=== PATIENT | female | born 1955 | race Caucasian/White ===

== ENCOUNTER 2017-03-30 17:02 | Emergency (ER) | payer MEDICARE, OTHER ==
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
[2017-03-30 18:05] VITALS: BP 131/79
== END 2017-03-30 18:03 | disposition home or self-care (01) ==
LOC: ER 17:02
DX: S93.401A Sprain of unspecified ligament of right ankle, initial encounter (principal); X58.XXXA Exposure to other specified factors, initial encounter; Y93.9 Activity, unspecified; Y92.9 Unspecified place or not applicable

== ENCOUNTER 2017-03-31 17:35 | Emergency (ER) | payer MEDICARE, OTHER ==
--- NOTE | 2017-03-31 20:26 | ERNOTE ---
Lower Extremity HPI - Narrative Date of Service: 03/31/17 - General Lower Extremities Pain: foot: right, ankle: right Time Seen by Provider: 03/31/17 19:55 Source: patient Exam Limitations: no limitations - Immun/Allergies/Home Medications Immunizations: IMMUNIZATION HX Immunizations Up to Date Yes History of Influenza Vaccine No Hx Pneumococcal Vaccination No Allergies/Adverse Reactions: Allergies Allergy/AdvReac Type Severity Reaction Status Date / Time penicillin G Allergy Mild HIVES, RASH Verified 03/31/17 17:50 metronidazole [From Flagyl] AdvReac Mild N/V Verified 03/31/17 17:50 Metronidazole HCl AdvReac Mild N/V Verified 03/31/17 17:50 [From Flagyl] Home Medications: HOME MEDICATIONS Cetirizine HCl [Zyrtec] 10 mg PO DAILY 04/22/13 [Last Taken Unknown] EPINEPHrine [Epipen] 0.3 mg IM PRN PRN 04/22/13 [Last Taken Unknown] Lysine [l-Lysine] 500 mg PO DAILY PRN 04/22/13 [Last Taken Unknown] Acetaminophen [Tylenol] 325 - 650 mg PO Q4H PRN 05/04/15 [Last Taken Unknown] Multivitamins [Multivitamin Fazal] 1 cap PO DAILY 05/04/15 [Last Taken Unknown] Albuterol Sulfate [Proair Hfa] 1 - 2 puff IH Q4H PRN 09/04/15 [Last Taken Unknown] Estrogens, Conjugated [Premarin] 0.625 mg PO DAILY 05/27/16 [Last Taken Unknown] Fluticasone Propionate [Flonase] 1 spray NS DAILY 05/27/16 [Last Taken Unknown] traMADol HCL [Ultram] 50 mg PO DAILY PRN #10 tablet 03/30/17 [Last Taken Unknown ] - History of Present Illness Narrative: patient states that she injured her right ankle and foot on Friday. Patient states that she only had an ankle x-ray when she was here and now her foot hurts along with her right wrist. Patient requesting x-rays of foot and right wrist related to pain. Patient states she did not take her anti- inflammatory Aleve today. Occurred: last week Location of Incident: home Method of Injury: Reports: twisted Reason for Fall: Reports: tripped Loss of Consciousness: Reports: no loss of consciousness Modifying Factors - (Improves): Reports: immobilization Modifying Factors - (Worsens): Reports: movement Subsequent Symptoms: Denies: sensory loss, numbness, motor loss, bowel/bladder problem Prior Treament: Reports: recently seen Review of Systems - Review of Systems Constitutional: Present: no symptoms reported EYE: Present: no symptoms reported ENT: Present: no symptoms reported Respiratory: Present: no symptoms reported Cardiology: Present: no symptoms reported Gastrointestinal/Abdominal: Present: no symptoms reported Genitourinary: Present: no symptoms reported Musculoskeletal: Present: See HPI, joint pain Skin: Present: no symptoms reported Neurological: Present: no symptoms reported Endocrine: Present: no symptoms reported Hematologic/Lymphatic: Present: no symptoms reported Psych: Present: no symptoms reported All Other Systems: All systems neg except as marked - Patient's Past Medical History Patient History - Medical: No pertinent hx Patient History - Cardiac/Respiratory: Other Patient History - Cancer: No Hx of Cancer Patient History - Surgical Procedures: Cataracts, Colonoscopy, Total Hip Replacement, Other Patient History - Other: None LMP (females 10-50): Menopausal - Family History Father Family History - Medical: Mother Family History - Medical: Family History - Cardiac/Respiratory: Other - Social History Living Situations: home Abuse History: No History of abuse Psych History: No pertinent hx Smoking Status: Never smoker Alcohol Use: rarely Drug Use: none - Immunizations Immunizations Up to Date: Yes Hx Pneumococcal Vaccination: No History of Influenza Vaccine: No Physical Exam - Physical Exam General Appearance: Present: wd/wn, alert, no apparent distress Head Exam: Present: normal inspection, no evidence of injury Eye Exam: Normal inspection: bilateral, PERRL: bilateral, EOMI: bilateral Ears, Nose, Throat: Present: normal ENT inspection, normal pharynx Neck: Present: normal inspection, nontender Respiratory: Present: no respiratory distress, normal breath sounds, no accessory muscle use, chest nontender, lungs clear Cardiovascular/Chest: Present: regular rate, rhythm, no murmur, normal peripheral pulses Peripheral Pulses: N=norm/S=strong/W=weak/B=bound/A=absent: Dorsalis-pedis (R): Normal, Dorsalis-pedis (L): Normal Gastrointestinal/Abdominal: Present: normal bowel sounds, nontender, nondistended, soft, no organomegaly Back Exam: Present: normal inspection, normal range of motion, no CVA tenderness , no vertebral tenderness Extremity Exam: Present: normal inspection, normal range of motion, no edema, pedal edema, bony tenderness, joint swelling Neurological Exam: Present: alert, oriented, normal mood/affect, no motor/ sensory deficits Skin Exam: Present: normal color, warm/dry Lymphatic Exam: Present: no adenopathy ED Progress - Vital Signs Patient's Vital Signs:: I have reviewed the patient's vital signs. Vital Signs: Vital Signs 03/31/17 17:45 Temperature 36.9 C Pulse Rate 99 Respiratory 16 Rate Blood Pressure 138/95 O2 Sat by Pulse 94 Oximetry - X-Ray X-Ray #1 X-Ray: wrist Interpretation: Reviewed by me X-ray Comments: Indication: Fell on Friday. Right wrist pain. Technique: AP, lateral, oblique and ulnar deviated views of the right wrist. Findings: Diffuse decreased bony mineralization. No acute fracture or dislocation. There is extensive degenerative change of the right wrist mostly involving the first carpometacarpal joint. There is dorsal soft tissue swelling. IMPRESSION: SOFT TISSUE SWELLING WITHOUT ACUTE FRACTURE OR DISLOCATION. Electronically signed by Ulisses Wynn D.O.. Ulisses Wynn DO Dict: 03/31/171953 Typed: 03/31/171954/ X-Ray #2 X-Ray: foot Interpretation: Reviewed by me X-ray Comments: X-RAY REPORT [id number] RAD/Foot 3 Views RT * Exam Date: 03/31/2017 17:52 Ordering Physician: Janette Almaguer Indication: Fell on Friday. Persistent lateral foot and ankle pain. Technique: AP, lateral and oblique views of the right foot. Findings: Decreased bony mineralization. No acute fracture or dislocation. Hallux valgus with metatarsus primus varus deformity. Soft tissue and osseous bunion formation. There is degenerative change of the first MTP joint. Small plantar heel spur. There is soft tissue swelling over the dorsal aspect of the mid to distal foot. IMPRESSION: SOFT TISSUE SWELLING WITHOUT ACUTE OSSEOUS ABNORMALITY. Electronically signed by Ulisses Wynn D.O.. Ulisses Wynn DO Dict: 03/31/171954 Typed: 03/31/171954/ - Progress/Reassessment Chief Complaint: Foot Injury/Pain Progress:: Improved Plan - Plan Plan: patient is to follow up with PCP and/or Dr ellis if pain does not improve. Departure Clinical Impression: Ankle sprain Qualifiers: Encounter type: subsequent encounter Involved ligament of ankle: other ligament Laterality: right Qualified Code(s): S93.491D - Sprain of other ligament of right ankle, subsequent encounter - Departure Disposition: Home Follow Up Needed Condition: Stable Instructions: Ankle Sprain, [id number] Referrals: Miko Luis DO [Primary Care Provider] - Rufino Osborne MD [Staff Physician] -
[2017-03-31 20:42] VITALS: BP 144/82
== END 2017-03-31 20:33 | disposition home or self-care (01) ==
LOC: ER 17:35
DX: S93.491D Sprain of other ligament of right ankle, subsequent encounter (principal); W19.XXXD Unspecified fall, subsequent encounter